=== PATIENT | female | born 1960 | race Asian ===

== ENCOUNTER 2023-04-14 13:57 | Outpatient (CLI) | payer MEDICARE, OTHER ==
--- NOTE | 2023-04-14 14:38 | DEXA Report ---
PROCEDURE: Dexa Spine and/or Hip INDICATIONS: MENOPAUSAL TECHNIQUE: Dual energy x-ray absorptiometry (DXA) was performed on a [employer]ello System. Regions measur ed are the AP Spine, femoral neck, and if needed forearm. COMPARISON: None FINDINGS: Lumbar Spine: Bone Mineral Density 1.338 g/cm/cm,T score 1.3. Left Femoral Neck: Bone Mineral Density 0.919 g/cm/cm, T score -0.9. Left Hip: Bone Mineral Density 1.155 g/cm/cm,T score 1.2. (T score greater or equal to -1.0: NORMAL) (T score from -1.1 to -2.4: OSTEOPENIA) (T score less than or equal to -2.5 to: OSTEOPOROSIS) Impression: By WHO criteria, this patient has normal bone density. Patients with diagnosis of osteoporosis or osteopenia should have regular bone mineral density assess ment. For those eligible for Medicare, routine testing is allowed once every 2 years. Testing frequ ency can be increased for patients who have rapidly progressing disease or for those who are receivin g medical therapy to restore bone mass. Reviewed by: Da Perez MD on 04/14/2023 2:37 PM PST Approved by: Da Perez MD on 04/14/2023 2:37 PM PST Station ID: [id number]
== END 2023-04-14 13:58 | disposition home or self-care (01) ==
LOC: DI 13:57
PROVIDERS: ATTEND Internal Medicine
DX: N95.8 Other specified menopausal and perimenopausal disorders (principal)